=== PATIENT | male | born 1955 | race Caucasian/White ===

== ENCOUNTER → 2017-11-07 14:43 | Outpatient (CLI) | payer OTHER, SELFPAY ==
--- NOTE | 2017-11-07 15:57 | DI.RAD.S_ITS ---
This blank DEXA report has been sent in error by the PACS system. The correct and it complete report will be forthcoming in 1-2 days. Thank you for your patience and understanding. Dictated by: Shruti Tipton MD, PhD on 11/07/2017 at 16:18 Approved by: Shruti Tipton MD, PhD on 11/07/2017 at 16:18
== END ==
PROVIDERS: Visit Provider Physician Assistant
DX: M85.852 Other specified disorders of bone density and structure, left thigh (principal); R29.890 Loss of height
CPT/HCPCS: 77080

== ENCOUNTER → 2019-07-05 11:33 | Outpatient (CLI) | payer BC, SELFPAY ==
--- NOTE | 2019-07-05 | DI.CT.S_ITS ---
PROCEDURE: CT ABDOMEN PELVIS WO/W CON INDICATIONS: Personal history of urinary calculi TECHNIQUE: Optional 5 mm thick noncontrast images acquired from the diaphragm to the symphysis pubis. After the administration of intravenous contrast, 5 mm thick images acquired from the diaphragm to the symphysis pubis after a 10-minute delay. 2 mm thick coronal and sagittal reformats were then performed of the kidneys and ureters. For radiation dose reduction, the following was used: automated exposure control, adjustment of mA and/or kV according to patient size. COMPARISON: [facility], CT, ABDOMEN/PELVIS WITH CONTRAST, 01/21/2014, 8:02. [facility], CR, XR ABDOMEN 1 VIEW, 07/22/2018, 14:25. FINDINGS: Image quality: Excellent. Lung bases: Lung bases are clear. Heart size is normal. Urinary system: Both kidneys are normal in size. Punctate nonobstructing right kidney stones measuring 3 mm or less, (2/30). No hydronephrosis. No perinephric fat stranding. There is normal bilateral renal enhancement. Small bilateral simple cysts. Rounded hypodense focus in the left kidney mid/inferior pole calyx, (6/ and 3/83). This appears isodense to the renal parenchyma on the noncontrast series. Ureter is normal in caliber. No ureteral filling defect identified. Bladder wall thickness is normal. No calcified bladder stones. Other solid organs: Liver is normal in size and enhancement. Small cysts in the inferior right lobe. Gallbladder is unremarkable. Biliary system is non dilated. Pancreas enhances normally. Spleen is normal in size and enhancement. No adrenal nodules. Peritoneum and bowel: Bowel loops demonstrate normal wall thickness and caliber. No free fluid or air. Appendix is normal. Nodes and vessels: No retroperitoneal or mesenteric adenopathy by size criteria. Aorta and inferior vena cava are normal in size. Abdominal wall: No ventral hernias. Pelvis: No pathologic free pelvic fluid. No inguinal hernias or adenopathy. Bones: No suspicious bony lesions. No vertebral body compression fractures. IMPRESSION: 1. Left mid/inferior pole calyceal hypodense focus. This could represent a small urothelial cell carcinoma or peripelvic cysts. -Recommend MRI of the kidneys for further evaluation. 2. Ureters are otherwise normal in caliber. 3. Punctate nonobstructing right kidney stones. No hydronephrosis. Dictated by: Jim Lewis M.D. on 07/05/2019 at 13:27 Approved by: Jim Lewis M.D. on 07/05/2019 at 13:44
== END ==
PROVIDERS: PCP Internal Medicine; Referring Provider Internal Medicine; Visit Provider Internal Medicine
DX: R10.30 Lower abdominal pain, unspecified (principal); N20.0 Calculus of kidney; N28.1 Cyst of kidney, acquired; Z87.442 Personal history of urinary calculi
CPT/HCPCS: 74178; Q9967

== ENCOUNTER → 2019-07-14 14:34 | Outpatient (CLI) | payer BC, SELFPAY ==
--- NOTE | 2019-07-14 | DI.MRI.S_ITS ---
PROCEDURE: MR ABDOMEN WO/W CON INDICATIONS: Other specified disorders of kidney and ureter TECHNIQUE: Coronal HASTE through abdomen and pelvis; axial 2D FLASH in- and [id number] (with and without fat saturation), and breath-hold T2 FSE from the hepatic dome to the bottom of the kidneys. Coronal HASTE MR urogram of kidneys and bladder. Dynamic coronal VIBE during IV gadolinium administration; postgadolinium axial VIBE or 2D FLASH with fat saturation from the hepatic dome through the kidneys. COMPARISON: [facility], CT, CT ABDOMEN PELVIS WO/W CON, 07/05/2019, 11:57. FINDINGS: Image quality: Excellent. Genitourinary system: There is a smoothly marginated ovoid structure in the posterior left lower pole calyx measuring 1.4 x 0.9 cm in the axial plane. This demonstrates a homogeneous hyperintense T1 signal and T2 signal isointense to renal medullary parenchyma. Post contrast subtraction images demonstrate mild dependent peripheral hyperintensity which is almost certainly due to misregistration artifact. No convincing central lesion enhancement. Elsewhere there are multiple cysts in each kidney and both cortex and corticomedullary parenchyma. Other solid organs: 1.9 cm hemangioma centrally in segment V of the liver. Elsewhere simple cysts are seen in the liver. No suspicious masses. The gallbladder has a normal MR appearance. Adrenal glands, pancreas, and spleen are normal. Nodes and vessels: Abdominal aorta and inferior vena cava are normal caliber. No retroperitoneal adenopathy or mesenteric adenopathy. Bowel and peritoneum: The stomach and visible bowel loops are normal without obstruction. No free fluid Lung bases: No basal effusions. Normal heart size. No hernia. Bones and soft tissues: Normal marrow signal. IMPRESSION: 1. Smooth, 1.4 cm T1 bright parenchymal nodule in the lower pole left kidney most consistent with a hemorrhagic or proteinaceous cyst. 2. Multiple other cortical medullary renal cysts. 3. 1.9 cm hepatic hemangioma and a few scattered hepatic cysts. Dictated by: Candida Modi M.D. on 07/14/2019 at 18:45 Approved by: Candida Modi M.D. on 07/16/2019 at 10:42
== END ==
PROVIDERS: PCP Internal Medicine; Referring Provider Internal Medicine; Visit Provider Internal Medicine
DX: N28.89 Other specified disorders of kidney and ureter (principal); N28.1 Cyst of kidney, acquired; K76.89 Other specified diseases of liver; D18.09 Hemangioma of other sites
CPT/HCPCS: 74183; A9579

== ENCOUNTER → 2023-07-25 12:23 | Outpatient (CLI) | payer SELFPAY ==
--- NOTE | 2023-07-25 12:27 | DI.RAD.S_ITS ---
PROCEDURE: XR SHOULDER RT MIN 2V INDICATIONS: CHRONIC RT SHOULDER PAIN TECHNIQUE: 3 views of the shoulder were acquired. COMPARISON: None. FINDINGS: Bones: No acute fractures or dislocations. No suspicious bony lesions. Visualized ribs appear intact. Moderate to severe glenohumeral osteoarthrosis. Mild degenerative spurring is seen in the glenoid rim. There is narrowing of the acromial humeral distance measuring approximately 3 mm in AP view. Soft tissues: No suspicious soft tissue calcifications. IMPRESSION: 1. Moderate to severe acromioclavicular joint osteoarthrosis. 2. High-riding humeral head with narrowing of the acromial humeral interval, which is suspicious for underlying rotator cuff tendon tearing. MRI could be performed for further evaluation if indicated clinically. Approved by: Jovany Barraza M.D. on 07/25/2023 at 14:46
--- NOTE | 2023-07-25 12:27 | DI.RAD.S_ITS ---
PROCEDURE: XR HIP W PEL IF DONE JOZEF MIN 4V INDICATIONS: HIP PAIN TECHNIQUE: AP pelvis with lateral views of the right and left hips. COMPARISON: [facility], CR, XR HIP W PEL IF DONE BILAT 2V, 10/08/2017, 10:39. FINDINGS: Bones: No acute fractures or dislocations. Pelvic ring appears intact. No suspicious bony lesions. Mild joint space narrowing is seen in the superior hips bilaterally with subchondral sclerosis and small marginal osteophytes. Soft tissues: The visualized bowel gas pattern is normal. No suspicious soft tissue calcifications. IMPRESSION: Mild symmetric osteoarthrosis in the hips bilaterally. Approved by: Jovany Barraza M.D. on 07/25/2023 at 14:48
== END ==
PROVIDERS: PCP Internal Medicine; Referring Provider Student in an Organized Health Care Education/Training Program; Visit Provider Student in an Organized Health Care Education/Training Program
DX: M19.011 Primary osteoarthritis, right shoulder (principal); M16.0 Bilateral primary osteoarthritis of hip; M25.511 Pain in right shoulder; M25.551 Pain in right hip; M25.552 Pain in left hip; G89.29 Other chronic pain
CPT/HCPCS: 73030; 73522

== ENCOUNTER → 2023-08-14 06:50 | Outpatient (CLI) | payer MEDICARE, OTHER, SELFPAY ==
--- NOTE | 2023-08-14 06:54 | DI.MRI.S_ITS ---
PROCEDURE: MR SHOULDER RT WO CON INDICATIONS: SHOULDER PAIN TECHNIQUE: Noncontrast oblique coronal T2 fast spin echo with fat saturation, oblique sagittal T1 spin echo and T2 fast spin echo with fat saturation, axial T1 spin echo and T2 fast spin echo with fat saturation through the shoulder. COMPARISON: None. FINDINGS: Image quality: Excellent. Rotator cuff: There is full-thickness rupture of distal supraspinatus at its insertion on the humeral head with up to 4.1 cm medial retraction of torn tendon fibers to the level of acromioclavicular joint. Low to moderate grade articular surface partial-thickness tear involving distal infraspinatus at its insertion on the humeral head is seen extending to musculotendinous junction. Distal subscapularis tendinosis is seen. Sagittal images demonstrate moderate supraspinatus muscle atrophy. Bones and bursae: No bone marrow contusions or fractures. Moderate acromioclavicular joint osteoarthritic changes are seen with joint space narrowing, subchondral sclerosis and downward osteophyte formation depressing the musculotendinous junction of supraspinatus. Superior migration of humeral head in relation to glenoid is seen. Small to moderate amount of joint effusion and subacromial subdeltoid bursal fluid is noted, no gross intra-articular loose bodies.. Capsule and soft tissues: There is fraying of superior anterior labrum at 12 to 1 o'clock position suggestive of subtle superior anterior labral tear. The long head of the biceps tendon appears attenuated at the level of greater tuberosity. The rotator interval appears normal, without fibrosis. The coracohumeral ligament is normal in thickness. IMPRESSION: 1. Full-thickness rupture of distal supraspinatus at its insertion on the humeral head with up to 4.1 cm medial retraction of torn tendon fibers to the level of acromioclavicular joint. Moderate supraspinatus muscle atrophy. 2. Low to moderate grade articular surface partial-thickness tear involving distal supraspinatus extending to musculotendinous junction. Distal subscapularis tendinosis. 3. Moderate acromioclavicular joint osteoarthritis. No fracture or dislocation. Moderate joint effusion and subacromial subdeltoid bursal fluid, no gross loose bodies. 4. Suggestion of superior anterior labral tear at 12 to 1 o'clock position. 5. Low to moderate grade partial-thickness tear involving proximal long head of biceps tendon. Dictated by: Kale Burciaga M.D. on 08/14/2023 at 14:06 Approved by: Kale Burciaga M.D. on 08/14/2023 at 14:12
== END ==
LOC: MRI 06:53
PROVIDERS: PCP Student in an Organized Health Care Education/Training Program; Referring Provider Student in an Organized Health Care Education/Training Program; Visit Provider Student in an Organized Health Care Education/Training Program
DX: S46.011A Strain of muscle(s) and tendon(s) of the rotator cuff of right shoulder, initial encounter (principal); S46.111A Strain of muscle, fascia and tendon of long head of biceps, right arm, initial encounter; M62.521 Muscle wasting and atrophy, not elsewhere classified, right upper arm; M19.011 Primary osteoarthritis, right shoulder; R93.89 Abnormal findings on diagnostic imaging of other specified body structures; M25.511 Pain in right shoulder; G89.29 Other chronic pain
CPT/HCPCS: 73221

== ENCOUNTER → 2024-02-10 10:21 | Outpatient (CLI) | payer MEDICARE, OTHER, SELFPAY ==
--- NOTE | 2024-02-10 10:25 | EKG_ITS ---
[address] [address] [address] [place] [address] Test Date: 2024-02-10 Pat Name: Alfonso Marie Department: DEFAULT Room: Gender: Male Tele Marketing Executive: SANIA : 1955 Requested By: Order Number: [id number] Reading MD: Jared Painting Measurements Intervals [place] [address] Rate: 48 P: 24 MD: 146 QRS: 10 QRSD: 92 T: 6 QT: 396 QTc: 353 Interpretive Statements Sinus bradycardia Electronically Signed On 02-10-2024 12:53:48 PDT by Jared Painting
--- NOTE | 2024-02-10 11:00 | DI.CT.S_ITS ---
PROCEDURE: CT UE RT WO CON INDICATIONS: ROTATOR CUFF ARTHROPATHY. Right shoulder pain TECHNIQUE: Noncontrast 0.75 mm thick sections acquired from the acromioclavicular joint to the inferior scapula, with coronal and sagittal reformatting. COMPARISON: [facility], MR, MR SHOULDER RT WO CON, 08/14/2023, 7:21. FINDINGS: Image quality: Excellent. Bones: Moderate degenerative changes of the acromioclavicular joint. Superior subluxation of the humeral head with subchondral cystic changes at the greater tuberosity, suggestive of rotator cuff pathology. Small sclerotic lesion in the posterior aspect the greater tuberosity, nonspecific and may represent a bone island. No significant degenerative changes of the glenohumeral joint. No acute fracture or dislocation of the right shoulder. Soft tissues: Visualized right lung is unremarkable. No right axillary lymphadenopathy. Moderate fatty atrophy of the supraspinatus and the infraspinatus. IMPRESSION: 1. Moderate degenerative changes of the acromioclavicular joint. 2. No significant degenerative changes of the glenohumeral joint. 3. Findings suggestive rotator cuff pathology with moderate fatty atrophy of the supraspinatus and infraspinatus. Dictated by: Stacy Jennings M.D. on 02/10/2024 at 16:28 Approved by: Stacy Jennings M.D. on 02/10/2024 at 16:35
[2024-02-10 12:09] LABS: Add Manual Diff / Slide Review NO; Basophils Absolute Auto 0 /uL (0-100); Basophils Percent Auto 0.5 % (0-2); Eosinophils Absolute Auto 200 /uL (0-450); Eosinophils Percent Auto 1.9 % (2-4); Hematocrit 43.5 % (41-53); Hemoglobin 14.7 g/dL (13.5-17.5); Lymphocytes Absolute Auto 1800 /uL (1100-4500); Lymphocytes Percent Auto 21.5 % (25-40); Mean Corpuscular HGB Conc 33.9 % (30-36); Mean Corpuscular Hemoglobin 31.3 PG (26-34); Mean Corpuscular Volume 92.2 fL (80-100); Monocytes Absolute Auto 600 /uL (0-900); Monocytes Percent Auto 7.9 % (3-14); Neutrophils Absolute Auto 5600 /uL (1500-7000); Neutrophils Percent Auto 68.2 % (50-75); Platelet Count 254 X10^3/uL (150-400); Red Blood Cell Count 4.71 X10^6/uL (4.5-5.9); Red Cell Distribution Width 14.4 % (11.6-14.8); White Blood Cell Count 8.2 X10^3/uL (4.5-11.0)
[2024-02-10 12:23] LABS: BUN Creatinine Ratio 25.6 (6-22); Blood Urea Nitrogen 21 mg/dL (9-20); Calcium 9.5 mg/dL (8.4-10.2); Carbon Dioxide 27 mmol/L (22-32); Chloride 105 mmol/L (98-107); Estimated Glomerular Filt Rate > 60 mL/min (>60); Glucose 90 mg/dL (80-110); HEMOLYSIS < 15 (0-50); Potassium 4.4 mmol/L (3.4-5.1); Sodium 139 mmol/L (137-145)
== END ==
PROVIDERS: PCP Student in an Organized Health Care Education/Training Program; Referring Provider Orthopaedic Surgery; Visit Provider Orthopaedic Surgery
DX: Z01.818 Encounter for other preprocedural examination (principal); Z01.812 Encounter for preprocedural laboratory examination; M12.811 Other specific arthropathies, not elsewhere classified, right shoulder
CPT/HCPCS: 36415; 73200; 80048; 85025; 93005

== ENCOUNTER 2024-03-04 07:39 | Day surgery (SDC) | payer MEDICARE, OTHER, SELFPAY ==
[2024-02-23 09:44] VITALS: BMI 35.1
--- NOTE | 2024-03-04 06:00 | DI.RAD.S_ITS ---
PROCEDURE: XR SHOULDER RT 1V INDICATIONS: right total shoulder TECHNIQUE: 1 views of the shoulder were acquired. COMPARISON: None. FINDINGS: Bones: Right shoulder reverse arthroplasty postsurgical changes. Hardware components are in expected position. No fractures or dislocations. No suspicious bony lesions. Visualized ribs appear intact. Soft tissues: No suspicious soft tissue calcifications. IMPRESSION: Right shoulder reverse arthroplasty postsurgical changes. Dictated by: Shruti Tipton MD, PhD on 03/04/2024 at 11:30 Approved by: Shruti Tipton MD, PhD on 03/04/2024 at 11:31
--- NOTE | 2024-03-04 07:36 | PM.PREOP ---
Pre-operative Note Interval Note History & Physical reviewed/Exam performed by Physician: Yes Changes to H&P: No
[2024-03-04 08:05] VITALS: BMI 35.1
--- NOTE | 2024-03-04 08:09 | SUR.OPER ---
Beach chair with Branden/Ning shoulder positioner. Lower body on padded OR bed. Head in foam padded head cradle, secured with straps. Non-operative arm secured <90 degrees abduction. Pillow under knees. Safety belt at thigh. Cloth tape over blanket over lower legs.
[2024-03-04] MEDS: ACETAMINOPHEN 325 MG TABLET 975 MG PO (08:20)
[2024-03-04] MEDS: LACTATED RINGERS 1,000 ML 42 ML IV (08:20)
[2024-03-04] MEDS: CEFAZOLIN 2 GM/100 ML PREMIX 100 ML IV (08:50)
[2024-03-04] MEDS: TRANEXAMIC ACID 1,000 MG VIAL 1000 MG INJ (09:00)
[2024-03-04] MEDS: BUPIVACAINE 0.25% (PF) 30 ML, EPINEPHrine 0.15 MG INJ (09:36)
[2024-03-04 10:55] VITALS: BP 87/56; PULSE 82; RESP 16; TEMP 36.7; O2SAT 93
[2024-03-04 11:03] VITALS: BP 116/68; PULSE 62; RESP 12; O2SAT 92
[2024-03-04 11:12] VITALS: BP 114/73; PULSE 63; RESP 12; O2SAT 94
[2024-03-04 11:17] VITALS: BP 119/69; PULSE 69; RESP 10; TEMP 36.7; O2SAT 90
[2024-03-04 11:24] VITALS: BP 104/64; PULSE 71; RESP 12; TEMP 36.2; O2SAT 92
[2024-03-04 12:11] VITALS: BP 112/69; PULSE 69; RESP 16; TEMP 36.2; O2SAT 92
--- NOTE | 2024-03-04 15:47 | PM.OP.1 ---
Operative Date/Time/Diagnoses Date of procedure: 03/04/24 Time of procedure: 15:47 Pre-op diagnosis: Right rotator cuff arthropathy Post-op diagnosis: same Procedure & Clinicians Procedure: Right reverse total shoulder arthroplasty Same procedure as scheduled: Yes Indications: Indications: This is a 68-year-old male who has rotator cuff arthropathy. Symptoms have been present for years, insidious onset. Patient has failed a reasonable attempt at conservative therapy. After extensive discussion in clinic, they wished to go forward with surgery. Risks and benefits were described including the risk of infection, bleeding, damage to internal structures including nerves. We also discussed the risk of failure of surgery and the need for revision surgery as well as the risk of anesthesia. The patient expressed understanding with these risks and wished to go forward with surgery. Findings: Osteoarthritis of the glenoid and humeral head as noted on preoperative imaging and under direct visualization Tornier implants Base plate: standard 25 mm, full wedge Glenosphere: 39 mm Stem: Perform 3 Poly: +3 retentive Patient was seen in the preoperative holding unit. The correct right shoulder was identified and marked with my initials. Again we discussed the risks and benefits of surgery and they wished to go forward with surgery. The patient was brought back to the operating room and placed supine on the operating table. Smooth endotracheal intubation was performed by anesthesia. All prominences were padded and they were placed into the beach chair position. Intravenous antibiotics were given. The right shoulder was then prepped with the standard sterile preparation and draping. A time-out was then performed in my initials were again identified on the correct shoulder. 1 g of IV tranexamic acid was given. A standard deltopectoral incision was made. Skin flaps were made. The cephalic vein was identified and retracted laterally. This was protected throughout the remainder of the case. Sharp dissection was made along the deltoid, subacromial and subcoracoid space to release adhesions. The conjoined tendon was identified and the axillary nerve was palpated and continuous using the tug test. It was protected throughout the remainder of the case. A brown retractor was placed underneath the deltoid muscle and a darach retractor underneath the conjoint tendon. The subscapularis muscle was ntoed to be intact. The anterior circumflex artery and associated veins on the lower border of the subscapularis were identified and tied off using 0-Vicryl. The biceps tendon was identified in the bicipital groove. This was released from its sheath, and taken from its origin on the glenoid and tied into the pectoralis tendon for a solid tenodesis. We then began a subscapularis peel. The subscapularis was tagged with an Ethibond suture. A 360 degree circumferential release of the subscapularis was performed with protection of the axillary nerve. The coracohumeral ligament was released at the base of the coracoid. The shoulder was then dislocated. Osteophytes were removed using combination of rongeur and osteotome. The rotator cuff was noted to be intact. An intramedullary guide was used set at version of 20?. Using an oscillating saw a conservative humeral head cut was made. Impaction reamers were reamed up to a size 3 stem with a built-in angle 135?. A neck protector was placed. Attention was then turned to the glenoid. After retracting the humeral head posteriorly a circumferential release was performed of the capsule with protection of the axillary nerve. The labrum was then released starting at the biceps anchor and going around the rim a small amount of triceps was released from the inferior glenoid. A center guide pin was then placed using the guide, followed by Reamer. After adequate cartilage was removed the boss was reamed and the centeral hole was drilled and measured. The base plate was then implanted and screwed into place. The peripheral screws were then sequentially drilled, measured, and placed. A 39 glenosphere was then selected and screwed into place onto the base plate. Turning back to the humerus, the humeral head was delivered and trialed with a +3 retentive. The arm was taken through range of motion and this was felt to be stable. The trial was then removed and a dilute Betadine wash was then performed with 1 L of sterile saline. Before placing the final implant, drill holes were made in the bicipital groove for the subscapularis repair, and sutures were passed through the drill holes. The final stem was then impacted into the humerus. The shoulder was then reduced and again brought through range of motion and was felt to be stable. The subscapularis was then repaired using a modified racking hitch with nice loupes. The skin was closed with 2-0 vicryl and 3-0 Monocryl followed by Aquacel dressing. Patient was awoken from anesthesia and brought back to the postoperative recovery unit without issue. They were placed into a sling. Assisting participation: This operation could not have been safely performed (without compromising the technical results or length of the procedure) without the assistance of a skilled environmental emergencies assistant. The environmental emergencies assistant was medically necessary for proper positioning, retraction and manipulation of instruments, proper exposure, graft prep, and manipulation of tissue. Postoperative instructions: Sling to remain on for 6 weeks. No external rotation past neutral for 6 weeks. Okay for the sling to come off for shower. Okay to shower over the Aquacel dressing. If any water gets underneath the dressing, remove the dressing. First postoperative visit in 2 weeks.
== END 2024-03-04 12:52 | disposition home or self-care (01) ==
PROVIDERS: PCP Student in an Organized Health Care Education/Training Program; Referring Provider Orthopaedic Surgery; Visit Provider Orthopaedic Surgery
PROC: (CPT 23472; principal; 2024-03-04 09:15)
DX: M12.811 Other specific arthropathies, not elsewhere classified, right shoulder (principal); G89.18 Other acute postprocedural pain; M25.711 Osteophyte, right shoulder
CPT/HCPCS: 23472; 64450; 73020; C1776; J0171; J0330; J0690; J1100; J1171; J2405; J2704

== ENCOUNTER 2024-10-19 12:37 | Emergency (ER) | payer MEDICARE, OTHER, SELFPAY ==
[2024-10-19] VITALS (11 sets, daily range): BP systolic 151–187; BP diastolic 74–88; PULSE 55–84; RESP 14–16; TEMP 36.6; O2SAT 96–99; BMI 35.0
--- NOTE | 2024-10-19 12:59 | ED_ITS ---
HPI - Fall General Chief Complaint: Fall Stated Complaint: Back pain,4ft fall 5 days ago Time Seen by Provider: 10/19/24 12:47 Source: patient, EMS, RN notes reviewed and old records reviewed Mode of arrival: Ambulatory Limitations: no limitations History of Present Illness HPI Narrative: 61-year-old male history of prostate cancer on medication, hypothyroidism after thyroidectomy for thyroid cancer, dyslipidemia, known compression fractures who presents with complaint of right flank pain. Patient on Friday, 4 days ago was working on a ladder about 4-5 ft up states he was trimming an apple trees when it twisted he fell and landed on his flank on the ladder, patient states he immediately had bruising. Has not increased in size. Was uncomfortable but doing well. Did follow up with walk-in clinic did take some chronic pain medication Friday but had Tylenol yesterday. States today was on the floor went to twist and reach when had sudden increase in pain. He states he did hit his head but denies being knocked out or having any headaches. No dizziness. No neck or midline back pain reported. No chest pain or shortness of breath. Denies any nausea or vomiting. Has had some mild constipation but having bowel movements. Denies any dysuria urgency frequency or hematuria. Denies any pain in his extremities. No weakness numbness or difficulty with moving extremities. States pain is localized to the flank and worse particularly with movement back and forth and sideways and rotation. Patient states he is on Claritin, finasteride, tamsulosin, levothyroxine, lovastatin and Flonase. States he was had prior thyroidectomy, lithotripsy for right kidney stones and right shoulder surgery as well as right knee surgery. States allergy to ciprofloxacin. No tobacco, alcohol once monthly. No recreational drugs. María Frank is his primary care. Related Data Home Medications Medication Instructions Recorded Confirmed lovastatin 20 mg tablet 20 mg PO QDAYPM ##0 11/29/12 02/23/24 finasteride 5 mg tablet 5 mg PO DAILY 07/03/18 03/04/24 fluticasone propionate 50 1 inhalation inhalation BID 07/03/18 02/23/24 mcg/actuation blister powder for inhalation tamsulosin 0.4 mg capsule 0.4 mg PO DAILY 07/03/18 03/04/24 levothyroxine 175 mcg tablet 175 mcg PO DAILY 02/23/24 03/04/24 loratadine 10 mg tablet 10 mg PO DAILY allergies 02/23/24 02/23/24 terbinafine HCl 250 mg tablet 250 mg PO DAILY 02/23/24 03/04/24 Previous Rx's Medication Instructions Recorded RESPIRONICS DREAMSTATION #1 ea 10/06/20 hydrocodone 5 mg-acetaminophen 325 1 tab PO Q6H PRN pain #20 tabs 03/04/24 mg tablet ibuprofen 600 mg tablet 600 mg PO Q6H PRN pain #30 tabs 03/04/24 ondansetron 4 mg disintegrating 4 mg PO Q8H PRN nausea and 03/04/24 tablet vomiting #10 tabs cyclobenzaprine 10 mg tablet 10 mg PO TID PRN muscle spasm #14 10/19/24 tabs meloxicam 7.5 mg tablet 7.5 mg PO BID PRN pain #14 tabs 10/19/24 oxycodone 5 mg tablet 5 mg PO QID PRN pain #14 tabs 10/19/24 Allergies Allergy/AdvReac Type Severity Reaction Status Date / Time ciprofloxacin Allergy Mild RASH Verified 10/19/24 12:47 Review of Systems Review of Systems ROS Unobtainable: All systems reviewed & are unremarkable except as noted in HPI and below Patient History Medical History Irritable bowel syndrome (IBS) Obesity (BMI 30-39.9) Kidney stones History of ureteral obstruction Hyperlipidemia (~03/30/02) History of thyroid cancer BPH (benign prostatic hyperplasia) Hypersomnia Loss of height Obstructive sleep apnea of adult Surgical History History of tonsillectomy H/O lithotripsy H/O arthroplasty H/O uvulectomy H/O nasal septoplasty H/O total thyroidectomy Social History marital status: details: josseline Howard household members: spouse lives independently: Yes housing: house pets and animals: Yes (currently has 2 large dogs and 1 cat) education level: high school occupational status: employed Smoking Status: Unknown if ever smoked alcohol intake: current Smoking Status: Unknown if ever smoked alcohol intake frequency: a few times a month Exam Narrative Exam Narrative: GEN: Patient appears in moderate distress. HEAD: No evidence of trauma, no raccoon/Couch sign. NECK: Nontender, painless range of motion, trachea midline Negative Nexus criteria, no midline line tenderness, distracting injury, altered mental status, neuro deficit, recent EtOH. EYES: PERRLA, EOMI ENT: External inspection normal, trachea is midline, TM's are normal no hemotypanum, Nares are clear, no septal hematoma, no dental or oral injury, airway is normal and with normal occlusion, No bony tenderness RESP: Chest is nontender and has symmetric movement, no ecchymosis, breath sounds are normal no crackles, wheezes or rales CVS: Heart sounds are normal, no murmur noted, No JVD. ABG/GI: Nontender, soft, normal bowel sounds, no distention, no organomegaly, pelvic rock is negative NEURO: Oriented AOx3, neuro is grossly intact, sensation and motor is normal all 4 extremities moving, cranial nerves II through XII are intact, GCS is 15 PSYCH: Normal mood and affect SKIN: Intact, warm and dry, no crepitus and without decubitus BACK: Mild right CVA tenderness, no left CVA tenderness. No vertebral tenderness, no step-off's, no crepitus, patient has obvious ecchymosis at the left flank and over his left buttock. He was quite uncomfortable leaning forward or backward as well as rotating. EXT: Atraumatic, hips are nontender, no pedal edema, normal color and temperature, normal range of motion of extremities with normal tendon exam, 2+ pulses in all four extremities Initial Vital Signs Initial Vital Signs: Vital Signs Pulse Rate 84 10/19/24 12:44 Pulse Oximetry 98 10/19/24 12:44 Course Orders Ordered: ED Orders 10/19/24 12:46 CBC Auto Diff [Complete Blood Count AUTO DIFF] Stat CMP [Comprehensive Metabolic Panel] Stat Lipase Stat 10/19/24 13:02 CT chest abd pel w con Stat Discontinued Medications Acetaminophen (Acetaminophen 325 Mg Tablet) 975 mg PO NOW ONE Stop: 10/19/24 12:59 Last Admin: 10/19/24 13:15 Dose: 975 mg Documented By: SB Cyclobenzaprine HCl (Cyclobenzaprine 10 Mg Tablet) 10 mg PO NOW ONE Stop: 10/19/24 14:51 Last Admin: 10/19/24 15:10 Dose: 10 mg Documented By: MICHAEL Hydromorphone HCl (Hydromorphone 1 Mg Inj) 1 mg IV NOW ONE Stop: 10/19/24 15:58 Last Admin: 10/19/24 16:11 Dose: 1 mg Documented By: JAVIER Ketorolac Tromethamine (Ketorolac 30 Mg/Ml Vial) 15 mg IV NOW ONE Stop: 10/19/24 14:51 Last Admin: 10/19/24 15:10 Dose: 15 mg Documented By: MICHAEL Vital Signs Vital signs: Vital Signs - 8 hr 10/19/24 12:44 10/19/24 12:45 10/19/24 12:45 Temperature Pulse Rate 84 84 Respiratory Rate Blood Pressure 183/88 H Pulse Oximetry 98 98 Oxygen Delivery Method 10/19/24 12:47 10/19/24 13:00 10/19/24 13:00 Temperature 97.9 F Pulse Rate 60 58 L Respiratory Rate 14 Blood Pressure 183/88 H 161/79 H Pulse Oximetry 98 99 Oxygen Delivery Method Room Air 10/19/24 13:30 10/19/24 14:00 10/19/24 14:30 Temperature Pulse Rate 68 55 L 64 Respiratory Rate Blood Pressure Pulse Oximetry 98 96 96 Oxygen Delivery Method 10/19/24 14:32 10/19/24 14:32 10/19/24 15:00 Temperature Pulse Rate 61 67 Respiratory Rate Blood Pressure 187/79 H Pulse Oximetry 98 97 Oxygen Delivery Method 10/19/24 15:01 10/19/24 15:01 10/19/24 17:38 Temperature Pulse Rate 59 L 80 Respiratory Rate 16 16 Blood Pressure 156/74 H 151/77 H Pulse Oximetry 97 98 Oxygen Delivery Method Room Air - Fall Lab Data 10/19/24 12:46 10/19/24 12:46 Labs: Lab Results 10/19/24 Range/Units 12:46 WBC 8.0 (4.5-11.0) X10^3/uL RBC 4.85 (4.5-5.9) X10^6/uL Hgb 14.9 (13.5-17.5) g/dL Hct 45.1 (41-53) % MCV 93.0 (80-100) fL MCH 30.7 (26-34) PG MCHC 33.0 (30-36) % RDW 14.5 (11.6-14.8) % Plt Count 266 (150-400) X10^3/uL Neut % (Auto) 71.3 (50-75) % Lymph % (Auto) 19.4 L (25-40) % [place] % (Auto) 7.6 (3-14) % Eos % (Auto) 1.4 L (2-4) % Baso % (Auto) 0.3 (0-2) % Neut # (Auto) 5700 (6365-4965) /uL Lymph # (Auto) 1600 (8727-1172) /uL [place] # (Auto) 600 (0-900) /uL Eos # (Auto) 100 (0-450) /uL Baso # (Auto) 0 (0-100) /uL Sodium 140 (137-145) mmol/L Potassium 4.6 (3.4-5.1) mmol/L Chloride 106 (98-107) mmol/L Carbon Dioxide 24 (22-32) mmol/L BUN 21 H (9-20) mg/dL Creatinine 0.79 (0.66-1.25) mg/dL Estimated GFR > 60 (>60) mL/min BUN/Creatinine Ratio 26.6 H (6-22) Glucose 96 (70-99) mg/dL Calcium 9.4 (8.4-10.2) mg/dL Total Bilirubin 0.7 (0.2-1.3) mg/dL AST 27 (17-59) IU/L ALT 26 (<50) IU/L Alkaline Phosphatase 72 (38-126) U/L Total Protein 7.9 (6.3-8.2) g/dL Albumin 4.6 (3.5-5.0) g/dL Globulin 3.3 (1.7-4.1) g/dL Albumin/Globulin Ratio 1.4 (1.0-2.8) Lipase 82 (23-300) U/L MDM Narrative Medical decision making narrative: 69-year-old male had about a 4 ft fall, 4 days ago. Had immediate bruising he states it has not changed in location. Has been uncomfortable but doing well today while lying on the floor went to twist to reach something and had significant increase in pain and has not been able to easily get up or move about since. Does have a known history of compression fractures in his back but states no midline pain. No neurologic changes. Has some tenderness over the flank but no other tenderness with palpation. We will obtain labs and CT of chest abdomen pelvis. Patient states he did hit his head but it was not anticoagulated does not have any other symptoms felt appropriate to hold on head CT and CT cervical spine at this time as he was 4 days out from his initial injury. Labs show normal white count, hemoglobin and platelets, patient's hemoglobin is 14.9 was 14.7 and February of 2024. Chemistries show BUN 21 otherwise normal electrolytes creatinine, glucose and LFTs. CT abdomen pelvis shows lower back and right flank body wall contusion with mild hemorrhage no drainable fluid collection no acute displaced fracture no solid organ laceration or significant retroperitoneal hemorrhage. There are multiple hypotension lesions that may represent cysts or hemangiomas in the liver. Subcentimeter hilar lesion too small to characterize possible cyst or hemangioma in the spleen. Patient had acetaminophen, initially deferred anything stronger for pain. Discussed with the patient is still quite uncomfortable when he tries to move if he was still he was quite comfortable. He would like to avoid any narcotics but did discuss doing a muscle relaxer +some Toradol see if this is helpful. If he finds it is useful we will send a prescription. On rechecked patient is still has quite a bit of difficulty with movement. Was ultimately willing to try some narcotics. He was unable to get off the bed and walk to a wheelchair without any assistance. We will send a short course of oral pain medication to take with his other medications as seems to be the most effective. We did discuss return precautions on imaging he was injury seem most consistent with contusion but on exam I suspect there some component of injury to his back. He does not have any red flag symptoms necessitating MRI at this time. Discussed with the patient does return precautions and need for follow up. He expresses understanding. Discharge Plan Departure Patient Disposition: Home Clinical Impression: Contusion of right flank, Contusion of right side of back, Back pain, Fall from ladder Instructions: DI for Low Back Pain, DI for Hematoma (Bruise) Activity Restrictions/Additional Instructions: Your workup today does show contusion of the lower back and right flank wall small amount of hemorrhage there was no drainable fluid collections you have degenerative changes to the bones in your back but no fractures. Incidentally you have some small changes in the liver that likely are cysts or hemangiomas as well as 1 small lesion that is possibly a cyst or hemangioma of the spleen. You can take acetaminophen up to a 1000 mg every 6 hours as needed for pain, been adequate you can take meloxicam 1 tablet every 12 hours as needed. This is an NSAID do not take with the Aleve, ibuprofen, naproxen or other NSAIDs. Can also use muscle relaxer 1 tablet every 8 hours as needed. This medication can make you sleepy do not drive, perform hazardous activities or make any major decisions while taking it. You can take 1-2 tablets of narcotic pain medication every 6 hours as needed. This medication can make you sleepy do not drive, perform hazardous activities or make any major decisions while taking it. This medication will make you constipated please take a stool softener once to twice daily until stools are soft and regular. Prescription sent to [facility] in [place]. Please return if you have rapidly worsening symptoms new or worsening back or flank pain, spreading bruising or any signs of new bleeding, lightheadedness or passing out, fevers, chest pain or shortness of breath, vomiting, new numbness tingling or weakness difficulty with movement of your legs or extremities, loss of bowel or bladder control or saddle anesthesia or other new or concerning changes. Prescriptions: New cyclobenzaprine 10 mg tablet 10 mg PO TID PRN (Reason: muscle spasm) Qty: 14 0RF meloxicam 7.5 mg tablet 7.5 mg PO BID PRN (Reason: pain) Qty: 14 0RF oxycodone 5 mg tablet 5 mg PO QID PRN (Reason: pain) Qty: 14 0RF No Action lovastatin 20 MG tablet 20 mg PO QDAYPM Qty: 0 levothyroxine 175 mcg tablet 175 mcg PO DAILY terbinafine HCl 250 mg tablet 250 mg PO DAILY loratadine 10 mg Tablet 10 mg PO DAILY hydrocodone-acetaminophen 5-325 mg tablet 1 tab PO Q6H PRN (Reason: pain) Qty: 20 0RF ibuprofen 600 mg tablet 600 mg PO Q6H PRN (Reason: pain) Qty: 30 0RF ondansetron 4 mg tablet,disintegrating 4 mg PO Q8H PRN (Reason: nausea and vomiting) Qty: 10 0RF finasteride 5 mg tablet 5 mg PO DAILY tamsulosin 0.4 mg capsule 0.4 mg PO DAILY fluticasone propionate 50 mcg/actuation blister with device 1 inhalation INHALATION BID (DME) [employer] DREAMSTATION See Rx Instructions .ROUTE .MEDSUPPLY Qty: 1 0RF Rx Instructions: As directed Referrals: María Frank PA-C [Primary Care Provider] - Stand Alone Forms: Patient Portal/API/Survey
--- NOTE | 2024-10-19 13:02 | DI.CT.S_ITS ---
PROCEDURE: CT CHEST ABD PEL W CON INDICATIONS: fall 4-5ft, landed L flank, bruising L flank pain TECHNIQUE: After the administration of intravenous contrast, 5 mm thick sections acquired from the lung apices to the symphysis. 5 mm coronal and sagittal reformats were performed, with additional 7 mm MIP reformats through the lungs. For radiation dose reduction, the following was used: automated exposure control, adjustment of mA and/or kV according to patient size. COMPARISON: [facility], MR, MR ABDOMEN WO/W CON, 07/14/2019, 14:55. Not available FINDINGS: Image quality: Diagnostic Lungs and pleura: No hemothorax or pneumothorax. No suspicious focal pulmonary nodule. Mediastinum, heart, and esophagus: Coronary calcifications. Trace hiatal hernia. No pathologic lymph nodes by size criteria. No mediastinal hematoma. Chest wall and thyroid: Thyroid not discretely seen. Liver: No definite laceration. There are multiple hypoattenuating lesions that may represent cysts and hemangiomas. Gallbladder and biliary system: Unremarkable, nondilated Pancreas: Mild parenchymal atrophy. No ductal dilation Spleen: Subcentimeter hilar lesion is too small to characterize, possibly cysts or hemangioma Adrenals: No discrete nodules Kidneys: Suspected renal cysts. No hydronephrosis. No capsular hematoma or laceration. Nonobstructing renal calculi bilaterally. Vessels and lymph nodes: The main portal vein appears patent. No abdominal aortic aneurysm. No retroperitoneal hemorrhage. No pathologic lymphadenopathy by size criteria. Bowel and peritoneum: No evidence of small bowel obstruction. No hemoperitoneum. Colonic diverticulosis. Nondilated appendix Body wall: Moderate contusion along back and right flank, with mild degree of hemorrhage. Pelvis: Bladder is unremarkable. Heterogeneous prostate with calcifications and enhancement, not well assessed on CT, most commonly BPH Bones: No acute pelvic ring disruption. No displaced fracture is seen. There are degenerative spine changes. Right shoulder arthroplasty. IMPRESSION: Lower back and right flank body wall contusion with mild hemorrhage. No drainable fluid collection. No acute displaced fracture. No solid organ laceration or significant retroperitoneal hemorrhage. Other incidental findings above. Dictated by: Rick Wang M.D. on 10/19/2024 at 13:25 Approved by: Rick Wang M.D. on 10/19/2024 at 13:33
[2024-10-19 13:09] LABS: Add Manual Diff / Slide Review NO; Basophils Absolute Auto 0 /uL (0-100); Basophils Percent Auto 0.3 % (0-2); Eosinophils Absolute Auto 100 /uL (0-450); Eosinophils Percent Auto 1.4 % (2-4); Hematocrit 45.1 % (41-53); Hemoglobin 14.9 g/dL (13.5-17.5); Lymphocytes Absolute Auto 1600 /uL (1100-4500); Lymphocytes Percent Auto 19.4 % (25-40); Mean Corpuscular Hemoglobin 30.7 PG (26-34); Monocytes Absolute Auto 600 /uL (0-900); Monocytes Percent Auto 7.6 % (3-14); Neutrophils Absolute Auto 5700 /uL (1500-7000); Neutrophils Percent Auto 71.3 % (50-75); Platelet Count 266 X10^3/uL (150-400); Red Blood Cell Count 4.85 X10^6/uL (4.5-5.9); Red Cell Distribution Width 14.5 % (11.6-14.8)
[2024-10-19 13:14] LABS: Alanine Aminotransferase 26 IU/L (<50); Albumin 4.6 g/dL (3.5-5.0); Albumin Globulin Ratio 1.4 (1.0-2.8); Alkaline Phosphatase 72 U/L (38-126); Aspartate Aminotransferase 27 IU/L (17-59); BUN Creatinine Ratio 26.6 (6-22); Bilirubin Total 0.7 mg/dL (0.2-1.3); Blood Urea Nitrogen 21 mg/dL (9-20); Calcium 9.4 mg/dL (8.4-10.2); Carbon Dioxide 24 mmol/L (22-32); Chloride 106 mmol/L (98-107); Estimated Glomerular Filt Rate > 60 mL/min (>60); Globulin 3.3 g/dL (1.7-4.1); Glucose 96 mg/dL (70-99); HEMOLYSIS < 15 (0-50); Lipase 82 U/L (23-300); Potassium 4.6 mmol/L (3.4-5.1); Sodium 140 mmol/L (137-145); Total Protein 7.9 g/dL (6.3-8.2)
[2024-10-19] MEDS: ACETAMINOPHEN 325 MG TABLET 975 MG PO (13:15)
[2024-10-19] MEDS: KETOROLAC 30 MG/ML VIAL 15 MG IV (15:10)
[2024-10-19] MEDS: CYCLOBENZAPRINE 10 MG TABLET PO (15:10)
[2024-10-19] MEDS: HYDROMORPHONE 1 MG INJ IV (16:11)
== END 2024-10-19 17:41 | disposition home or self-care (01) ==
PROVIDERS: Emergency Provider Emergency Medicine; PCP Student in an Organized Health Care Education/Training Program
DX: S30.1XXA Contusion of abdominal wall, initial encounter (principal); S30.0XXA Contusion of lower back and pelvis, initial encounter; S09.90XA Unspecified injury of head, initial encounter; W11.XXXA Fall on and from ladder, initial encounter
CPT/HCPCS: 36415; 71260; 74177; 80053; 83690; 85025; 96374; 96375; 99284; J1171; J1885; Q9967

== ENCOUNTER → 2025-05-24 10:51 | Outpatient (CLI) | payer MEDICARE, OTHER, SELFPAY ==
--- NOTE | 2025-05-24 10:55 | DI.RAD.S_ITS ---
PROCEDURE: XR LUMBAR SPINE 2-3V INDICATIONS: LOW BACK PAIN TECHNIQUE: 3 views of the lumbar spine were acquired. COMPARISON: None. FINDINGS: Bones: 5 [id number] vertebrae are present. There is 5 mm retrolisthesis of L2 on L3 and L3 on L4. Loss of disc height, degenerative endplate changes and bilateral facet arthrosis throughout lumbar spine is seen more notably at L2-3 and L3-4 levels. Mild leftward curvature of lumbar spine with apex at L2 level is also seen. No vertebral body compression fractures. No suspicious bony lesions. Soft tissues: Overlying bowel gas pattern is normal. No suspicious soft tissue calcifications. IMPRESSION: Mild scoliosis and grade 1 retrolisthesis as above. No acute compression fracture. Moderate degenerative disc disease throughout lumbar spine. Dictated by: Kale Burciaga M.D. on 05/24/2025 at 15:42 Approved by: Kale Burciaga M.D. on 05/24/2025 at 15:43
== END ==
PROVIDERS: PCP Family Medicine; Referring Provider Family Medicine; Visit Provider Family Medicine
DX: M51.360 Other intervertebral disc degeneration, lumbar region with discogenic back pain only (principal); M43.16 Spondylolisthesis, lumbar region; M41.9 Scoliosis, unspecified; G89.29 Other chronic pain
CPT/HCPCS: 72100